=== PATIENT | male | born 1945 | race Caucasian/White ===

== ENCOUNTER 2018-09-07 22:05 | Emergency (ER) | payer MEDICARE ==
[2018-09-07 22:10] VITALS: TEMP 98
[2018-09-07] MEDS ORDERED: SODIUM CHLORIDE 0.9% 1,000 ML IV STA (22:18)
--- NOTE | 2018-09-07 22:44 | ED ---
General Adult HPI <Afshin Rock - Last Filed: 09/08/18 00:17> - General Source: patient, family, RN notes reviewed, old records reviewed Mode of arrival: wheelchair Limitations: no limitations <Lex Garduno - Last Filed: 09/08/18 00:26> - General Chief complaint: Dizziness Stated complaint: Dizziness Time Seen by Provider: 09/07/18 22:18 - History of Present Illness Initial comments: 72-year-old male patient presents to ED with chief complaint nausea vomiting diarrhea, lightheadedness, mild shortness of breath. 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 Patient states that he has become dehydrated before in the past had similar symptoms. Patient reports a does feel somewhat better now. However still dizzy. Denies any chest pain, denies any pain anywhere. Systemic: Pt denies fatigue, fever/chills, rash. Pt denies weakness, night sweats, weight loss. Neuro: Pt denies headache, visual disturbances, syncope or pre-syncope. HEENT: Pt denies ocular discharge or irritation, otalgia, rhinorrhea, pharyngitis or notable lymphadenopathy. Cardiopulmonary: Pt denies chest pain, SOB, heart palpitations, dyspnea on exertion. Abdominal/GI: Pt denies abdominal pain. : Pt denies dysuria, burning w/ urination, frequency/urgency. Denies new onset urinary or bowel incontinence. MSK: Pt denies myalgia, loss of strength or function in extremities. Neuro: Pt denies new onset weakness, paresthesias. (Lex Garduno) - Related Data Home Medications Medication Instructions Recorded Confirmed Aspirin EC [Ecotrin Low Dose] 81 mg PO DAILY 09/07/18 09/07/18 Atorvastatin Calcium [Lipitor] 5 mg PO HS 09/07/18 09/07/18 Dutasteride [Avodart] 0.5 mg PO HS 09/07/18 09/07/18 Ergocalciferol (Vitamin D2) 50,000 unit PO WE 09/07/18 09/07/18 [Drisdol] Fish Oil/Dha/Epa [Fish Oil 1,200 1 cap PO DAILY 09/07/18 09/07/18 mg Fish Oil] Memantine [Namenda] 10 mg PO BID 09/07/18 09/07/18 Saw [place] 500 mg PO DAILY 09/07/18 09/07/18 Tamsulosin HCl [Flomax] 0.4 mg PO DAILY 09/07/18 09/07/18 amLODIPine [Norvasc] 5 mg PO DAILY 09/07/18 09/07/18 diphenhydrAMINE HCL [Benadryl] 25 mg PO DAILY 09/07/18 09/07/18 Previous Rx's Medication Instructions Recorded Azithromycin [Zithromax Z-pack] 0 mg PO DIRECTED #6 tab 09/08/18 Allergies Allergy/AdvReac Type Severity Reaction Status Date / Time No Known Allergies Allergy Verified 09/07/18 22:22 Review of Systems ROS Other: All systems not noted in ROS Statement are negative. <Afshin Rock - Last Filed: 09/08/18 00:17> ROS Other: All systems not noted in ROS Statement are negative. <Lex Garduno - Last Filed: 09/08/18 00:26> ROS Statement: Those systems with pertinent positive or pertinent negative responses have been documented in the HPI. Past Medical History Past Medical History: Dementia Additional Past Medical History / Comment(s): brain aneurysm age 47, bradycardia, History of Any Multi-Drug Resistant Organisms: None Reported Past Surgical History: Hernia Repair Additional Past Surgical History / Comment(s): hernia repair, brain aneurysm Past Psychological History: No Psychological Hx Reported Smoking Status: Former smoker Past Alcohol Use History: None Reported Past Drug Use History: None Reported <Lex Garduno - Last Filed: 09/08/18 00:26> General Exam Limitations: no limitations <Lex Garduno - Last Filed: 09/08/18 00:26> - General Exam Comments Initial Comments: Constitutional: NAD, AOX3, Pt has pleasant affect. HEENT: NC/AT, trachea midline, neck supple, no lymphadenopathy. Posterior pharynx non erythematous, without exudates. External ears appear normal, without discharge. Mucous membranes moist. Eyes PERRLA, EOM intact. There is no scleral icterus. No pallor noted. Cardiopulmonary: RRR, no murmurs, rubs or gallops, no JVD noted. Lungs CTAB in anterior and posterior harrington. No peripheral edema. Abdominal exam: Abdomen soft and non-distended. Abdomen non-tender to palpation in all 4 quadrants. Bowel sounds active in LLQ. No hepatosplenomegaly. No ecc hymosis Neuro: CN II-XII intact. No nuchal rigidity. No raccon eyes, no irby sign, no hemotympanum. No cervical spinal tenderness. MSK: No posterior calf tenderness bilaterally, homans sign negative bilaterally. Posterior tibialis and radial pulse +2 bilaterally. Sensation intact in upper and lower extremities. Full active ROM in upper and lower extremities, 5/5 stregnth. (Lex Garduno) Course <Afshin Rock - Last Filed: 09/08/18 00:17> Vital Signs 09/07/18 09/07/18 22:06 23:55 Temperature 98.0 F Pulse Rate 48 L 57 L Respiratory 17 16 Rate Blood Pressure 164/76 154/76 O2 Sat by Pulse 98 98 Oximetry - Reevaluation(s) Reevaluation #1: 09/08/18 00:17 Case evaluation: I personally did evaluate this case and discuss findings with those above. Patient will be discharged the presentation consistent with dehydration and heat exhaustion. Assessment and plan (Afshin Rock) Medical Decision Making - Lab Data Result diagrams: 09/07/18 22:45 09/07/18 22:45 <Afshin Rock - Last Filed: 09/08/18 00:17> - Lab Data Result diagrams: 09/07/18 22:45 09/07/18 22:45 - EKG Data -: EKG Interpreted by Me (and Dr. Rock) <Lex Garduno - Last Filed: 09/08/18 00:26> - Medical Decision Making 72-year-old male patient presents to ED with chief complaint nausea vomiting diarrhea, lightheadedness, mild shortness of breath. 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 Patient states that he has become dehydrated before in the past had similar symptoms. Patient reports a does feel somewhat better now. However still dizzy. Denies any chest pain, denies any pain anywhere. Patient does signs stable, afebrile. Physical exam demonstrates acute pathology. Laboratory investigations non-impressive. Troponin negative. EKG not concerning for acute ischemia. Chest x-ray displayed right middle and lower lung pneumonia. CT brain did not display acute process. Patient administered 1 g Rocephin and 1 dose of azithromycin in ED. She was currently asymptomatic. Patient was discharged with close outpatient follow-up. Patient will return to ER if condition worsens. Case discussed with Dr. Rock. (Lex Garduno) - Lab Data Lab Results 09/07/18 09/07/18 09/07/18 Range/Units 22:45 22:45 22:45 WBC 6.6 (3.8-10.6) k/uL RBC 4.22 L (4.30-5.90) m/uL Hgb 12.5 L (13.0-17.5) gm/dL Hct 36.5 L (39.0-53.0) % MCV 86.4 (80.0-100.0) fL MCH 29.7 (25.0-35.0) pg MCHC 34.3 (31.0-37.0) g/dL RDW 14.0 (11.5-15.5) % Plt Count 152 (150-450) k/uL Neutrophils % 77 % Lymphocytes % 11 % Monocytes % 9 % Eosinophils % 0 % Basophils % 1 % Neutrophils # 5.0 (1.3-7.7) k/uL Lymphocytes # 0.7 L (1.0-4.8) k/uL Monocytes # 0.6 (0-1.0) k/uL Eosinophils # 0.0 (0-0.7) k/uL Basophils # 0.0 (0-0.2) k/uL PT (9.0-12.0) sec INR (<1.2) APTT (22.0-30.0) sec Sodium 136 L (137-145) mmol/L Potassium 3.8 (3.5-5.1) mmol/L Chloride 101 (98-107) mmol/L Carbon Dioxide 26 (22-30) mmol/L Anion Gap 9 mmol/L BUN 18 (9-20) mg/dL Creatinine 0.62 L (0.66-1.25) mg/dL Est GFR (CKD-EPI)AfAm >90 (>60 ml/min/1.73 sqM) Est GFR (CKD-EPI)NonAf >90 (>60 ml/min/1.73 sqM) Glucose 114 H (74-99) mg/dL Calcium 8.3 L (8.4-10.2) mg/dL Magnesium 2.1 (1.6-2.3) mg/dL Total Bilirubin 0.2 (0.2-1.3) mg/dL AST 15 L (17-59) U/L ALT 20 L (21-72) U/L Alkaline Phosphatase 67 (38-126) U/L Troponin I (0.000-0.034) ng/mL NT-Pro-B Natriuret Pep 386 pg/mL Total Protein 6.0 L (6.3-8.2) g/dL Albumin 3.4 L (3.5-5.0) g/dL 09/07/18 09/07/18 Range/Units 22:45 22:45 WBC (3.8-10.6) k/uL RBC (4.30-5.90) m/uL Hgb (13.0-17.5) gm/dL Hct (39.0-53.0) % MCV (80.0-100.0) fL MCH (25.0-35.0) pg MCHC (31.0-37.0) g/dL RDW (11.5-15.5) % Plt Count (150-450) k/uL Neutrophils % % Lymphocytes % % Monocytes % % Eosinophils % % Basophils % % Neutrophils # (1.3-7.7) k/uL Lymphocytes # (1.0-4.8) k/uL Monocytes # (0-1.0) k/uL Eosinophils # (0-0.7) k/uL Basophils # (0-0.2) k/uL PT 9.7 (9.0-12.0) sec INR 0.9 (<1.2) APTT 23.1 (22.0-30.0) sec Sodium (137-145) mmol/L Potassium (3.5-5.1) mmol/L Chloride (98-107) mmol/L Carbon Dioxide (22-30) mmol/L Anion Gap mmol/L BUN (9-20) mg/dL Creatinine (0.66-1.25) mg/dL Est GFR (CKD-EPI)AfAm (>60 ml/min/1.73 sqM) Est GFR (CKD-EPI)NonAf (>60 ml/min/1.73 sqM) Glucose (74-99) mg/dL Calcium (8.4-10.2) mg/dL Magnesium (1.6-2.3) mg/dL Total Bilirubin (0.2-1.3) mg/dL AST (17-59) U/L ALT (21-72) U/L Alkaline Phosphatase (38-126) U/L Troponin I <0.012 (0.000-0.034) ng/mL NT-Pro-B Natriuret Pep pg/mL Total Protein (6.3-8.2) g/dL Albumin (3.5-5.0) g/dL - EKG Data EKG Comments: Ventricular rate 60,. And for 166, QRS 86, QT/QTc 452/452. Sinus bradycardia with occasional PVC. Nonspecific ST abnormality. No concern for acute ischemia at this time. (Lex Garduno) Disposition <Afshin Rock - Last Filed: 09/08/18 00:17> Is patient prescribed a controlled substance at d/c from ED?: No <Lex Garduno - Last Filed: 09/08/18 00:26> Clinical Impression: Dehydration, Pneumonia Disposition: HOME SELF-CARE Condition: Stable Instructions (If sedation given, give patient instructions): Pneumonia (ED) Additional Instructions: Patient to adhere to previously discussed treatment plan and will take medication(s) as directed. Patient to follow up with PCP in 1-2 days. Patient to return to ED if symptoms do not improve. Follow-up with primary care provider tomorrow. Take medication as directed. Return to ER if condition worsens. Prescriptions: Azithromycin [Zithromax Z-pack] 0 mg PO DIRECTED #6 tab Referrals: None,Stated [Primary Care Provider] - 1-2 days
[2018-09-07 23:01] LABS: Basophils % (A) 1 %; Eosinophils % (A) 0 %; HCT 36.5 % (39.0-53.0); HGB 12.5 gm/dL (13.0-17.5); Lymphocytes # (A) 0.7 k/uL (1.0-4.8); Lymphocytes % (A) 11 %; MCH 29.7 pg (25.0-35.0); MCHC 34.3 g/dL (31.0-37.0); MCV 86.4 fL (80.0-100.0); Mean Platelet Volume 9.3; Monocytes # (A) 0.6 k/uL (0-1.0); Monocytes % (A) 9 %; Neutrophils % (A) 77 %; Platelet Count 152 k/uL (150-450); RBC 4.22 m/uL (4.30-5.90); WBC 6.6 k/uL (3.8-10.6)
[2018-09-07 23:09] LABS: INR 0.9 (<1.2); Partial Thromboplastin Time 23.1 sec (22.0-30.0); Prothrombin Time 9.7 sec (9.0-12.0)
[2018-09-07 23:13] LABS: ALT 20 U/L (21-72); AST 15 U/L (17-59); African American GFR (CKD) >90 (>60 ml/min/1.73 sqM); Albumin 3.4 g/dL (3.5-5.0); Alkaline Phosphatase 67 U/L (38-126); Anion Gap 9 mmol/L; Blood Urea Nitrogen 18 mg/dL (9-20); Calcium 8.3 mg/dL (8.4-10.2); Carbon Dioxide 26 mmol/L (22-30); Chloride 101 mmol/L (98-107); Glucose 114 mg/dL (74-99); Magnesium 2.1 mg/dL (1.6-2.3); Potassium 3.8 mmol/L (3.5-5.1); Sodium 136 mmol/L (137-145); Total Bilirubin 0.2 mg/dL (0.2-1.3)
--- NOTE | 2018-09-07 23:23 | XR ---
EXAM: XR Chest, 2 Views CLINICAL HISTORY: Chest Pain TECHNIQUE: Frontal and lateral views of the chest. COMPARISON: No relevant prior studies available. FINDINGS: Lungs: Moderate amount of patchy airspace opacity over right middle and lower lung zones, probably in the superior segment of right lower lobe, suggest pneumonia. Pleural space: Unremarkable. No pneumothorax. Heart: Unremarkable. No cardiomegaly. Mediastinum: Unremarkable. Bones/joints: Unremarkable. Tubes, lines and devices: Right PASTE UP [employer] shunt. IMPRESSION: Moderate amount of patchy airspace opacity over right middle and lower lung zones, suggest pneumonia. Followup to resolution is recommended to rule out potential underlying neoplastic etiologies.
[2018-09-07] MEDS ORDERED: cefTRIAXone IN SWFI 1,000 MG/10 ML SYRINGE IVP STA (23:41)
[2018-09-07 23:56] VITALS: BP 154/76; PULSE 57; RESP 16
--- NOTE | 2018-09-08 00:13 | CT ---
EXAM: CT Head Without Intravenous Contrast CLINICAL HISTORY: dizzy, vomiting TECHNIQUE: Axial computed tomography images of the head/brain without intravenous contrast. CTDI is 49.27 mGy and DLP is 1078.4 mGy-cm. This CT exam was performed using one or more of the following dose reduction techniques: automated exposure control, adjustment of the mA and/or kV according to patient size, and/or use of iterative reconstruction technique. Coronal and sagittal reconstructions are performed COMPARISON: No relevant prior studies available. FINDINGS: Brain: Moderate size and cephalization of anterior medial right frontal lobe. No hemorrhage. No significant white matter disease. Mild age-related generalized brain volume loss and chronic small vessel ischemic changes. . Bones/joints: Right frontal and temporal craniectomy Soft tissues: Unremarkable. 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 Sinuses: Unremarkable as visualized. No acute sinusitis. Mastoid air cells: Unremarkable as visualized. No mastoid effusion. Tubes, lines and devices: Tip of right temporal approaching intraventricular shunt is in anterior horn of left lateral ventricle. IMPRESSION: No acute findings.
[2018-09-08] MEDS ORDERED: AZITHROMYCIN 500 MG TAB PO STA (00:25)
[2018-09-08] MEDS ORDERED: ONDANSETRON 4 MG ODT STARTER PACK 2 TAB BTL PO STA (01:05)
== END 2018-09-08 00:50 | disposition home or self-care (01) ==
LOC: EC 22:05
DX: J18.9 Pneumonia, unspecified organism (principal); E86.0 Dehydration; R11.2 Nausea with vomiting, unspecified; R19.7 Diarrhea, unspecified; F03.90 Unspecified dementia, unspecified severity, without behavioral disturbance, psychotic disturbance, mood disturbance, and anxiety; Z86.69 Personal history of other diseases of the nervous system and sense organs; Z87.891 Personal history of nicotine dependence; Z98.890 Other specified postprocedural states; Z79.82 Long term (current) use of aspirin; Z79.899 Other long term (current) drug therapy
CPT/HCPCS: 36415; 93005; 83880; 80053; 83735; 84484; 85025; 85610; 85730; 71046; 70450; 99285; 96374; 96361 ×2; J0696; S0119